=== PATIENT | male | born 1985 | race Caucasian/White ===

== ENCOUNTER 2019-02-20 16:54 | Inpatient (IN) ==
[2019-02-20] MEDS ORDERED: IMODIUM PO PRN (18:07)
[2019-02-20] MEDS ORDERED: MAALOX PLUS LIQUID PO PRN (18:07)
[2019-02-20] MEDS ORDERED: BENTYL PO PRN (18:07)
[2019-02-20] MEDS ORDERED: ROBAXIN PO PRN (18:07)
[2019-02-20] MEDS ORDERED: PHENOBARBITAL IV PRN (18:07)
[2019-02-20] MEDS ORDERED: SENOKOT PO PRN (18:07)
[2019-02-20] MEDS ORDERED: DULCOLAX PR PRN (18:07)
[2019-02-20] MEDS ORDERED: TYLENOL PO PRN (18:07)
[2019-02-20] MEDS ORDERED: LIBRIUM PO PRN (18:07)
[2019-02-20] MEDS ORDERED: DESYREL PO PRN (18:07)
[2019-02-20] MEDS ORDERED: ZOFRAN ODT PO PRN (18:07)
[2019-02-20] MEDS ORDERED: D5W 1,000 ML IV PRN (18:07)
[2019-02-20] MEDS ORDERED: SEROQUEL PO PRN (18:07)
[2019-02-20] MEDS ORDERED: SINEMET 25/100 PO PRN (18:07)
[2019-02-20] MEDS ORDERED: ZOFRAN IV PRN (18:07)
[2019-02-20] MEDS ORDERED: TUBERSOL ID ONE (18:07)
[2019-02-20] MEDS ORDERED: ATARAX PO PRN (18:07)
[2019-02-20] MEDS ORDERED: SUBOXONE 2 MG/0.5 MG FILM SL SCH (18:15)
[2019-02-20 18:42] LABS: MCH 29.9 PG (27-31); MCHC 34.1 g/dL (33-37); MCV 87.6 FL (81-99); MPV 9.3 FL (7.4-10.4); RBC 4.68 XMIL (4.7-6.1); RDW 13.4 % (11.5-14.5); WBC 6.38 X1000 (4.8-10.8)
[2019-02-20 19:01] LABS: INR 0.94
[2019-02-20 19:10] LABS: UR AMPHETAMINES QUAL PRESUMPTIVE POSITIVE (NONE DETECT); UR BARBITUATES QUAL NONE DETECTED (NONE DETECT); UR BENZODIAZEPIN QUAL NONE DETECTED (NONE DETECT); UR CANNABINOIDS QUAL PRESUMPTIVE POSITIVE (NONE DETECT); UR COCAINE QUAL NONE DETECTED (NONE DETECT); UR METHADONE QUAL NONE DETECTED (NONE DETECT); UR METHAMPHETAMINE QUAL NONE DETECTED (NONE DETECT); UR OPIATES QUAL NONE DETECTED (NONE DETECT); UR OXYCODONE QUAL NONE DETECTED (NONE DETECT); UR PCP QUAL NONE DETECTED (NONE DETECT); UR PROPOXYPHENE QUAL NONE DETECTED (NONE DETECT); UR TCA QUAL NONE DETECTED (NONE DETECT)
[2019-02-20 19:30] LABS: AMYLASE 59 U/L (20-200); LIPASE 19 U/L (13-60)
[2019-02-20 19:32] LABS: AGAP 11; ALBUMIN 4.7 g/dL (3.5-5.0); ALKALINE PHOSPHATASE 57 U/L (32-122); BUN 13 mg/dL (8-22); CALCIUM 8.9 mg/dL (8.8-10.2); CHLORIDE 105 mmol/L (98-107); COSMO 285; CREATININE 0.9 mg/dL (0.7-1.2); ESTIMATED GFR > 60; GLUCOSE 95 mg/dL (70-104); GOT 20 U/L (10-34); GPT 18 U/L (10-44); POTASSIUM 4.4 mmol/L (3.5-5.1); SODIUM 143 mmol/L (136-145); TCO2 27 mmol/L (25-35); TOTAL PROTEIN 7.1 g/dL (6.3-8.3)
[2019-02-20] MEDS: NICODERM PATCH TD PRN (19:32)
--- NOTE | 2019-02-20 22:06 | HISTORY AND PHYSICAL ---
CHIEF COMPLAINT: Nausea and vomiting. HISTORY OF PRESENT ILLNESS: The patient is a 33-year-old male who presented to [facility] secondary to nausea, vomiting, abdominal pain, myalgias, tremors, and paresthesias. The patient notes he has had a long history of opioid dependency. States he was on Suboxone in the past and has weaned himself off. Unfortunately, due to social stressors, he has started using and abusing again. Notes that substance abuse has caused him to lose everything. He has had legal problems, relationship problems, financial and work problems. SOCIAL HISTORY: Patient is legally . He is currently unemployed. Lives at home in [place]. PAST MEDICAL HISTORY: No chronic active medical problems other than anxiety and low back pain. MEDICATIONS: None. ALLERGIES: None. REVIEW OF SYSTEMS: CINA score is 21 secondary to nausea, vomiting, with frequent dry heaves, sweating, shivering, chills, yawning, sniffling, watery eyes, gooseflesh, frequent restlessness. Notes he is unable to sit still. Has lots of myalgias, trembling in his extremities. Denies any headaches, blurred vision, change in vision. Denies any focalized numbness, tingling, or weakness in extremities. Denies any dysuria, frequency, urgency. Denies constipation, melena, hematochezia. SUBSTANCE ABUSE HISTORY: Patient was in treatment in 2010 at [place] for 21 days and then went to [facility] and stayed 5-1/2 months. Stayed clean for 6 months. In May of 2017, he was in [place]. Was on Suboxone. He stayed 16 days. He stayed clear another 6 months, and has unfortunately started using and abusing again. Notes he started drinking at age 13; currently drinks on weekends 2 or 3 times a year. Started marijuana at 13; currently uses 2 to 3 times a month. Started stimulants, meth at 16; he has been using 1/4 gram IV or smoking daily. Started cocaine at 14; uses 2 to 3 times a year. Tried mushrooms at 15; has not used in 2 years. Started opiates at 14; has started abusing daily with Suboxone, Neurontin, Percocet. Started smoking at 14; currently smokes a half pack a day. FAMILY HISTORY: Noncontributory. PHYSICAL EXAMINATION: GENERAL: Patient is awake, alert, oriented. He is in no current respiratory distress. HEENT: Normocephalic. NECK: Supple. CARDIOVASCULAR: Regular rate. No murmurs. CHEST: Clear and nonlabored. ABDOMEN: Soft, nondistended, nontender. EXTREMITIES: Moves all extremities. NEUROLOGIC: No focal changes. SKIN: Warm and dry. No rashes. ASSESSMENT: 1. Nausea and vomiting. 2. Abdominal pain. 3. Myalgias. 4. Paresthesias. 5. Paroxysmal sweating. 6. Opiate abuse withdrawal and stabilization. 7. Stimulant abuse with methamphetamine withdrawal and stabilization. 8. Chronic tobacco abuse. PLAN: 1. We will continue patient in the hospital. 2. Continue Suboxone. 3. Counseling. 4. Continue symptomatic medications. 5. Will follow. cc: Naga Oconnor MD
[2019-02-20] MEDS: MOTRIN PO PRN (22:57)
[2019-02-21] MEDS: PROTONIX PO SCH (06:06)
[2019-02-21 06:22] LABS: URINE SOURCE VOIDED
[2019-02-21 06:25] LABS: BILIRUBIN URINE NEGATIVE (NEGATIVE); BLOOD URINE NEGATIVE (NEGATIVE); CLARITY CLEAR (CLEAR); COLOR YELLOW; GLUCOSE URINE NEGATIVE (NEGATIVE); KETONE URINE NEGATIVE (NEGATIVE); LEUKOCYTES URINE NEGATIVE (NEGATIVE); NITRITE URINE NEGATIVE (NEGATIVE); PH URINE 6.5; PROTEIN URINE TRACE mg/dL (NEGATIVE); UROBILINOGEN URINE NORMAL
[2019-02-21 06:33] LABS: URINE CAST NONE SEEN /LPF; URINE CRYSTAL NONE SEEN /HPF; URINE RBC <10 /HPF (<10); URINE WBC <10 /HPF (<10); URINE YEAST NONE SEEN /HPF
[2019-02-21] MEDS ORDERED: SUBOXONE 2 MG/0.5 MG FILM SL PRN (08:31)
[2019-02-21] MEDS: THERA M PLUS PO SCH (10:11)
[2019-02-21] MEDS: VITAMIN B-1 PO SCH (10:11)
[2019-02-21] MEDS: FOLIC ACID PO SCH (10:11)
[2019-02-21] MEDS: SUBOXONE 2 MG/0.5 MG FILM SL SCH (17:49)
[2019-02-21] MEDS ORDERED: SUBOXONE 2 MG/0.5 MG FILM SL SCH (18:00)
[2019-02-21] MEDS: NICODERM PATCH TD PRN (19:54)
--- NOTE | 2019-02-21 19:56 | PROGRESS NOTE ---
DATE: 02/21/2019 SUBJECTIVE: The patient notes that he is feeling okay. He denies any chest pain or palpitations. He states that he felt better with Suboxone. OBJECTIVE: Vital signs reviewed. He is awake, alert. He is in no distress. Temperature 98 degrees, pulse 87, respiratory 18, BP 133/79.General: The patient is in no current respiratory distress. Pleasant to talk with. HEENT: Normocephalic. Neck supple. Cardiovascular: Regular rate. No murmurs. Chest clear, nonlabored. Abdomen soft, nondistended. Extremities: Moves all extremities. ASSESSMENT: 1. Nausea and vomiting. 2. Abdominal pain. 3. Myalgias. 4. Paresthesias. 5. Paroxysmal sweating. 6. Opiate abuse, withdrawal and stabilization. PLAN: We will continue the patient in the hospital. We will decrease his Suboxone to 2 mg twice daily. We will add an additional dose if needed. We will continue counseling. Further orders as needed. cc: Naga Oconnor MD
[2019-02-21] MEDS: CATAPRES PO SCH (22:21)
[2019-02-22] MEDS: PROTONIX PO SCH (06:10)
[2019-02-22] MEDS: SUBOXONE 2 MG/0.5 MG FILM SL SCH ×2 (06:10→18:30)
[2019-02-22] MEDS: THERA M PLUS PO SCH (09:37)
[2019-02-22] MEDS: VITAMIN B-1 PO SCH (09:37)
[2019-02-22] MEDS: FOLIC ACID PO SCH (09:37)
--- NOTE | 2019-02-22 17:20 | PROGRESS NOTE ---
DATE: 02/22/2019 SUBJECTIVE: The patient notes that he is feeling a lot better. Still having some myalgias. Still having some sweating episodes. Still feels uncomfortable going home today. PHYSICAL EXAMINATION: Vital Signs: Reviewed. General: He is awake, alert. He is in no current respiratory distress. HEENT: Normocephalic. Neck: Supple. Cardiovascular: Regular rate. Chest: Clear, nonlabored. Abdomen: Soft. Extremities: Moves all extremities. Neurologic: No changes. ASSESSMENT: 1. Nausea vomiting. 2. Abdominal pain. 3. Myalgias. 4. Paresthesias. 5. Paroxysmal sweating. 6. Opiate abuse withdrawal and stabilization. 7. Chronic anxiety, depression. PLAN: We will continue patient in the hospital today. We will continue clonidine at night if needed. That is the reason his blood pressures were low this morning. We will continue 2 mg of Subutex. If he tolerates, hopefully can discharge home tomorrow. cc: Naga Oconnor MD
[2019-02-22] MEDS: NICODERM PATCH TD PRN (20:15)
[2019-02-22] MEDS: CATAPRES PO SCH (20:17)
[2019-02-22] MEDS: MOTRIN PO PRN (23:13)
[2019-02-23] MEDS: SUBOXONE 2 MG/0.5 MG FILM SL SCH (06:16)
[2019-02-23] MEDS: PROTONIX PO SCH (06:16)
[2019-02-23 09:09] VITALS: BP 115/68
[2019-02-23] MEDS: VITAMIN B-1 PO SCH (09:33)
[2019-02-23] MEDS: FOLIC ACID PO SCH (09:33)
[2019-02-23] MEDS: THERA M PLUS PO SCH (09:33)
--- NOTE | 2019-02-23 22:04 | DISCHARGE SUMMARY ---
ADMISSION DATE: 02/20/2019 DISCHARGE DATE: 02/23/2019 DISCHARGE DIAGNOSIS: 1. Nausea, vomiting. 2. Abdominal pain. 3. Myalgias. 4. Paresthesias. 5. Paroxysmal sweating. 6. Opiate abuse withdrawal and stabilization. CONSULTATIONS: None. PROCEDURES: None. BRIEF HOSPITAL COURSE: The patient is 33-year-old male. He presented to [facility] secondary to nausea, vomiting, abdominal pain. He was placed on Suboxone. He tolerated very well. In fact he tolerated the 2 mg twice daily dose. DISPOSITION: Patient will be discharged home. Discussed with him at great length that he needs to avoid persons, places, situations which he has been using and abusing in the past. He needs outpatient life counseling as well as drug counseling. Needs to follow up with treatment facility of choice. Prescription for Suboxone 2 mg twice daily was written. cc: Naga Oconnor MD
== END 2019-02-23 13:07 | disposition home or self-care (01) | DRG 897 ==
LOC: P.MEDSURG 16:54
PROVIDERS: ADMIT Family Medicine; ATTEND Family Medicine